=== PATIENT | female | born 1970 | race Caucasian/White ===

== ENCOUNTER 2019-03-28 19:16 | Emergency (ER) | payer OTHER ==
[~2019-03-28] VITALS: Ht 165.1 cm; Wt 71.8 kg
[2019-03-28 19:17] VITALS: BP 118/60
[2019-03-28] MEDS ORDERED: ESTR125TA (19:26)
[2019-03-28] MEDS ORDERED: MIRA0.5T (19:26)
[2019-03-28] MEDS ORDERED: CYCL10TA PO (20:59)
--- NOTE | 2019-03-29 07:46 | REP ---
Clinical: Trauma. Fall. Technique: Internal rotation, external rotation, and Y view of the right shoulder. Findings: No acute fracture or dislocation. Small calcifications in the joint space posterior to the humeral head consistent with calcific tendinopathy. Subacromial space is normal. Acromioclavicular joint and glenohumeral joints are intact. Impression: Calcific tendinopathy. No acute fracture or dislocation. Electronically Signed by Shoaib Alonzo MD 03/29/2019 07:37 A
--- NOTE | 2019-03-29 07:46 | REP ---
Clinical: Pain. Fall. Technique: Neutral and frog lateral views of the right hip. Findings: No acute fracture or dislocation. Skeletal structures, joint spaces, and surrounding soft tissues are normal. Impression: Normal right hip. No acute fracture or dislocation. Electronically Signed by Shoaib Alonzo MD 03/29/2019 07:38 A
== END 2019-03-28 21:37 | disposition home or self-care (01) ==
LOC: M ED 19:16
DX: M25.511 Pain in right shoulder (principal); M25.551 Pain in right hip; M54.5 Low back pain; W20.8XXA Other cause of strike by thrown, projected or falling object, initial encounter; Y99.0 Civilian activity done for income or pay; M75.31 Calcific tendinitis of right shoulder; J45.909 Unspecified asthma, uncomplicated; Z98.84 Bariatric surgery status; Z88.5 Allergy status to narcotic agent; Z88.8 Allergy status to other drugs, medicaments and biological substances; Z91.013 Allergy to seafood; Z79.899 Other long term (current) drug therapy

== ENCOUNTER 2021-10-18 17:22 | Emergency (ER) | payer OTHER ==
[~2021-10-18] VITALS: Ht 152.4 cm; Wt 75.0 kg
[2021-10-18 17:22] VITALS: BP 115/71
[~2021-10-18 17:22] MED LIST: CYCL-707 PO; ESTR125TA; FERR325T18 PO; MIRA0.5T; RIZA10TA64 PO
== END 2021-10-18 20:45 | disposition left against medical advice (07) ==
LOC: M ED 20:09
DX: Z53.21 Procedure and treatment not carried out due to patient leaving prior to being seen by health care provider (principal)

== ENCOUNTER → 2022-01-26 | Outpatient (REF) | payer OTHER ==
[2022-01-26 14:53] LABS: APPEARANCE, URINE MANUAL CLEAR (CLEAR); COLOR, URINE MANUAL YELLOW (YELLOW)
[2022-01-26 14:55] LABS: BILIRUBIN, URINE MANUAL NEGATIVE (NEGATIVE); GLUCOSE, URINE (UA) MANUAL NEGATIVE (NEGATIVE); KETONE, URINE MANUAL NEGATIVE (NEGATIVE); NITRITE, URINE MANUAL NEGATIVE (NEGATIVE); PROTEIN, URINE MANUAL NEGATIVE (NEGATIVE); UROBILINOGEN, URINE MANUAL NORMAL (NORMAL)
[2022-01-26 15:00] LABS: BLOOD URINE MANUAL NEGATIVE (NEGATIVE); LEUKOCYTE ESTERASE, URINE MAN NEGATIVE (NEGATIVE)
== END ==
LOC: M SMT 12:41
PROVIDERS: ATTEND Nurse Practitioner Women's Health
DX: R39.198 Other difficulties with micturition (principal)
CPT/HCPCS: 51798; 81002; 87086; G0463

== ENCOUNTER → 2022-04-15 | Outpatient (CLI) | payer OTHER ==
[~2022-04-15] MED LIST changes: +PRAM0.5T4 PO; +RIZA10TA2 PO; +VITA30005 SL
== END ==
LOC: M LABSMTC 11:00
PROVIDERS: ATTEND Anesthesiology
DX: Z01.812 Encounter for preprocedural laboratory examination (principal); Z20.822 Contact with and (suspected) exposure to COVID-19

== ENCOUNTER 2022-04-20 09:24 | Day surgery (SDC) | payer OTHER ==
[~2022-04-20] VITALS: Ht 152.4 cm; Wt 79.4 kg
[~2022-04-20 09:24] MED LIST changes: +ceFAZolin SOD 2 GM in IV 1 EA IV ONE
[2022-04-20] MEDS ORDERED: LR 1,000 ML IV SCH ×2 (09:40→13:25)
[2022-04-20] MEDS ORDERED: LIDOCAINE 1% SDV 5ML VIAL SC PRN (09:40)
[2022-04-20] MEDS ORDERED: fentaNYL 100 MCG/2 ML INJECTION As Ordered ONE ×2 (10:09→12:39)
[2022-04-20] MEDS ORDERED: MIDAZOLAM INJ 2MG/2ML VIAL As Ordered ONE (10:09)
[2022-04-20] MEDS ORDERED: ACETAMINOPHEN 1000MG 100ML IV BAG As Ordered ONE (10:10)
[2022-04-20] MEDS ORDERED: propofoL 200 MG/20 ML VIAL As Ordered ONE ×2 (10:11→10:15)
[2022-04-20] MEDS ORDERED: LIDOCAINE 2% 100MG/5ML SDV (FOR ANES.) As Ordered ONE (10:11)
[2022-04-20] MEDS ORDERED: ONDANSETRON 4MG 2ML VIAL As Ordered ONE (10:12)
[2022-04-20] MEDS ORDERED: METHYLENE BLUE 0.5% (5MG/ML) 10 ML AMP (PROVAYBLUE) As Ordered ONE (10:12)
[2022-04-20] MEDS ORDERED: LIDOCAINE W/EPINEPHRINE 1% 20ML VIAL As Ordered ONE (10:50)
[2022-04-20] MEDS ORDERED: SCOPOLAMINE 1MG TRANSDERMAL PATCH As Ordered ONE (11:14)
[2022-04-20] MEDS: SCOPOLAMINE 1MG TRANSDERMAL PATCH TOP ONE ×2 (11:15→12:15)
[2022-04-20] MEDS ORDERED: KETOROLAC 60MG 2ML VIAL As Ordered ONE (13:04)
[2022-04-20] MEDS ORDERED: HYDR-3713 PO (13:21)
[2022-04-20] MEDS ORDERED: CEPH500C PO (13:21)
[2022-04-20] MEDS ORDERED: oxyCODONE 5MG TAB PO PRN (13:25)
[2022-04-20] MEDS ORDERED: fentaNYL 100 MCG/2 ML INJECTION IV PRN (13:25)
[2022-04-20] MEDS ORDERED: ONDANSETRON 4MG 2ML VIAL IV PRN (13:25)
[2022-04-20 15:10] VITALS: BP 119/77
== END 2022-04-20 15:35 | disposition home or self-care (01) ==
LOC: M SDC 09:24
PROVIDERS: ATTEND Urology
DX: N81.10 Cystocele, unspecified (principal); J45.909 Unspecified asthma, uncomplicated; Z79.899 Other long term (current) drug therapy; Z88.5 Allergy status to narcotic agent; Z91.013 Allergy to seafood; Z88.8 Allergy status to other drugs, medicaments and biological substances
CPT/HCPCS: 57240; 88302; J0131; J0690; J1100; J1885; J2250; J2405; J3010